=== PATIENT | female | born 1980 | race Caucasian/White ===

== ENCOUNTER 2018-03-03 19:24 | Emergency (ER) | payer OTHER ==
[2018-03-03] MEDS ORDERED: HYDROmorphone 1 MG/ML CARPUJECT IM STA (19:59)
[2018-03-03] MEDS ORDERED: BUFFERED LIDOCAINE 10 ML SYRINGE SUBQ STA (19:59)
[2018-03-03] MEDS ORDERED: PROMETHAZINE 25 MG/1 ML VIAL IM STA (19:59)
--- NOTE | 2018-03-03 20:02 | ED Physician Documentation ---
History of Present Illness - Stated complaint Stated Complaint: FEMALE - Chief complaint Chief Complaint: General - History obtained from History obtained from: Patient - History of Present Illness Timing: Other (She has an abscess in the perineum that has become increasingly painful over the last couple of days without fevers or chills. She had one in the same spot last year that her manipulated and popped at home. She denies possibility of .) Review of Systems Constitutional: denies: Fever, Chills Cardiac: denies: Chest pain / pressure, Palpitations Respiratory: denies: Dyspnea, Cough GI: denies: Abdominal Pain PD PAST MEDICAL HISTORY - Present Medications Home Medications: Ambulatory Orders Medication Instructions Recorded Confirmed Amox/Clav 875/125 [Augmentin] 1 each PO Q12H #14 tablet 03/03/18 Hydrocodone/Acetaminophen 1 - 2 each PO Q6H PRN #14 tablet 03/03/18 [Hydrocodon-Acetaminophen 5-325] - Allergies Allergies/Adverse Reactions: Allergies Allergy/AdvReac Type Severity Reaction Status Date / Time codeine Allergy Hives Verified 03/03/18 19:37 PD ED PE NORMAL - Vitals Vital signs reviewed: Yes - General General: Alert and oriented X 3, Other (She is standing at the side of the bed leaning over because she cannot sit on her perineum is otherwise in no distress.) - Abdomen Abdomen: Soft, Non tender - Female Female : Senior Java [id number] Developer present (Hilary Luna RN), Other (L inner gluteal abscess, 1cm, pointed) - Neuro Neuro: Alert and oriented X 3, Normal speech - Psych Psych: Normal mood, Normal affect Results - Vitals Vitals: Vital Signs - 24 hr 03/03/18 19:34 Temperature 36.0 C L Heart Rate 121 H Respiratory 20 Rate Blood Pressure 144/104 H O2 Saturation 98 Oxygen O2 Source Room air Procedures - Abscess I&D (location) Buttock Preparation: Betadine, Lidocaine 1% Incision: Incised with scalpel, Purulent drainage, Loculations broken, Culture obtained. No: Packed (too small) Other: Pt tolerated well, Dressing applied, Antibiotic prescribed Departure - Departure Disposition: Home, Self Care Clinical Impression: Abscess Condition: Good Record reviewed to determine appropriate education?: Yes Instructions: ED Abscess IandD Prescriptions: Amox/Clav 875/125 [Augmentin] 1 each PO Q12H #14 tablet Hydrocodone/Acetaminophen [Hydrocodon-Acetaminophen 5-325] 1 - 2 each PO Q6H PRN #14 tablet PRN Reason: pain Comments: We are performing a wound culture, the results should be done in 48-72 hours. If antibiotic change is necessary we will call you. Return if worse in the meantime, especially if you develop increased pain, fevers, cannot keep down the medication. Otherwise follow-up with your physician in approximately 2-3 days. Your blood pressure was elevated today on check into the emergency department. This does not mean that you have hypertension, it is a common phenomenon to come to the emergency department and have elevated blood pressure. I recommend that you see your primary care physician within the week to have it rechecked when you are feeling better. Do not drink or drive while taking narcotic pain medication. Note that many narcotic pain relievers also contain Tylenol/acetaminophen. Please ensure that your total dose of acetaminophen from all sources does not exceed 3 g (3000 mg) per day. You may get constipated while on this medication. Take a stool softener such as Colace twice a day while you are on it. Also add an tiit-gwl-iossmjh laxative such as senna or MiraLAX on any day that you do not have a bowel movement. If you received a narcotic pain medication or sedative while in the emergency department, do not drive for the next 24 hours.
[2018-03-03] MEDS ORDERED: AMOX/CLAV 875 MG/125 MG TABLET PO STA (21:11)
[2018-03-03] MEDS ORDERED: HYDROcod/ACET 5/325 Prepack 4 PO STA (21:11)
[2018-03-03 21:48] VITALS: BP 142/108
== END 2018-03-03 21:49 | disposition home or self-care (01) ==
LOC: ED 19:24
DX: L02.215 Cutaneous abscess of perineum (principal); R03.0 Elevated blood-pressure reading, without diagnosis of hypertension
CPT/HCPCS: 56405; 87070; 87205; 96372; 99283; A9270; J1170

== ENCOUNTER 2018-12-10 09:43 | Outpatient (CLI) | payer OTHER | END 2018-12-10 09:44 | disposition home or self-care (01) | LOC: LAB 09:43 | PROVIDERS: ATTEND Obstetrics & Gynecology | DX: O09.529 Supervision of elderly multigravida, unspecified trimester (principal) | CPT/HCPCS: 36415; 81511; 81599; 82950 ==

== ENCOUNTER 2019-01-28 10:03 | Outpatient (CLI) | payer OTHER ==
--- NOTE | 2019-01-28 16:40 | Ultrasound Report ---
Reason: SUPERVISION OF NORMAL Procedure Date: 01/28/2019 Accession Number: [id number] / [id number] Procedure: US - OB Detailed Eval CPT Code: FULL RESULT: EXAM: COMPLETE OBSTETRICAL ULTRASOUND EXAM DATE: 01/28/2019 11:56 AM. CLINICAL HISTORY: anatomic survey. COMPARISON: None. TECHNIQUE: Real-time sonographic evaluation of the fetus performed by the film replacement orderer. Multiple sales representative trainee static images were saved for review. Additional transvaginal imaging to more accurately evaluate cervical length/placental position/etc. DATING: Established EGA 23 weeks 1 day with MAINOR 05/26/2019 based on provider information. EGA 23 weeks 4 days with MAINOR 05/23/2019 based on the current ultrasound. GENERAL EVALUATION Cody . Cardiac activity: 141 bpm. movement: Present Presentation: Variable Placenta: Posterior position. No evidence for previa. Umbilical cord: 3 vessel cord. Central placental cord origin. Amniotic fluid: Subjectively normal. MVP 6.2 cm. BIOMETRY Bi-Parietal Diameter (BPD): 5.6 cm, 23 weeks 0 days Head Circumference (HC): 21.4 cm, 23 weeks 3 days Abdominal Circumference (AC): 19.9 cm, 24 weeks 4 days Femur Length (FL): 4.1 cm, 23 weeks 1 day Estimated Weight: 635 g, 76th percentile for 23 weeks 1 day. ANATOMY The intracranial structures, profile, face/nose/lips, spine, stomach, diaphragm, kidneys, bladder, and extremities were imaged and demonstrate no abnormality. The anterior abdominal wall with cord insertion and cardiac anatomy are not well seen. MATERNAL STRUCTURES Uterus: Unremarkable. Cervix: Long and closed. Transabdominal length 6 cm. Right ovary/adnexa: Unremarkable. Left ovary/adnexa: Unremarkable. Free fluid: None. IMPRESSION: 1. Cody live intrauterine with gestational age 23 weeks 1 day based on provider information. 2. Estimated weight is within expected limits for assigned dating. 3. cardiac anatomy and anterior abdominal wall with cord insertion not well seen today. Suggest follow-up imaging in 2-3 weeks. Otherwise Normal anatomic survey. RADIA
== END 2019-01-28 10:04 | disposition home or self-care (01) ==
LOC: DI 10:03
PROVIDERS: ATTEND Obstetrics & Gynecology
DX: Z34.92 Encounter for supervision of normal pregnancy, unspecified, second trimester (principal)
CPT/HCPCS: 76811

== ENCOUNTER 2019-02-11 11:17 | Outpatient (CLI) | payer OTHER ==
--- NOTE | 2019-02-12 13:25 | Ultrasound Report ---
Reason: SUPER OF NORMAL , INCOMPLETE FAS Procedure Date: 02/11/2019 Accession Number: [id number] / [id number] Procedure: US - OB F/U or Repeat CPT Code: Final Report FULL RESULT: EXAM: FOLLOW-UP OBSTETRICAL ULTRASOUND EXAM DATE: 02/11/2019 01:10 PM. CLINICAL HISTORY: Supervision of normal . Completion of anatomy survey. COMPARISON: OB DETAILED EVAL 01/28/2019 10:09 AM. TECHNIQUE: Real-time sonographic evaluation of the fetus performed by the triage nurse. Multiple cash posting representative static images were saved for review. DATING: Established EGA 25 weeks 1 day with MAINOR 05/26/2019 based on working due date. EGA 25 weeks 4 days with MAINOR 05/23/2019 based on first ultrasound. GENERAL EVALUATION Cody . Cardiac activity: 148 bpm. movement: Visualized. Presentation: Cephalic. Placenta: Posterior position. Amniotic fluid: Normal. TYLER 23.9 cm. MVP 7.2 cm. ANATOMY The four-chamber cardiac view, right and left ventricle outflow tract views are adequately seen today and appear normal. The abdominal wall and cord insertion are well seen today, appearance is normal. Given top normal amniotic fluid: On the previous examination a normal appearing stomach bubble is noted. No definite bowel obstruction is seen. No thoracic mass is incidentally noted. IMPRESSION: 1. Cody live intrauterine with gestational age weeks/days based on source of assigned dating. 2. Amniotic fluid is top normal. 3. Normal completion of the anatomy survey. RADIA
== END 2019-02-11 11:18 | disposition home or self-care (01) ==
LOC: DI 11:17
PROVIDERS: ATTEND Obstetrics & Gynecology
DX: Z34.90 Encounter for supervision of normal pregnancy, unspecified, unspecified trimester (principal)
CPT/HCPCS: 76816

== ENCOUNTER 2019-03-14 14:07 | Outpatient (CLI) | payer OTHER ==
--- NOTE | 2019-03-17 14:27 | Ultrasound Report ---
Reason: GESTATIONAL DIABETES, POLYHYDRAMNIOS Procedure Date: 03/14/2019 Accession Number: [id number] / [id number] Procedure: US - OB F/U or Repeat CPT Code: Final Report FULL RESULT: EXAM: FOLLOW-UP OBSTETRICAL ULTRASOUND EXAM DATE: 03/14/2019 04:24 PM. CLINICAL HISTORY: Gestational diabetes, polyhydramnios. COMPARISON: OB F/U OR REPEAT 02/11/2019 12:25 PM. OB DETAILED EVAL 01/28/2019 10:09 AM. TECHNIQUE: Real-time sonographic evaluation of the fetus performed by the behavioral health care manager. Multiple personnel representative static images were saved for review. DATING: Established EGA 29 weeks 4 days with MAINOR 05/26/2019 based on working due date and LMP. EGA 31 weeks 0 days with MAINOR 05/16/2019 based on the current ultrasound. GENERAL EVALUATION Cody . Cardiac activity: 129 bpm. movement: Visualized. Presentation: Cephalic. Placenta: Posterior position. Amniotic fluid: Normal. TYLER 14.2 cm. MVP 4.1 cm. BIOMETRY Bi-Parietal Diameter (BPD): 7.7 cm, 30 weeks 5 days. Head Circumference (HC): 28.6 cm, 31 weeks 3 days. Abdominal Circumference (AC): 26.6 cm, 30 weeks 5 days. Femur Length (FL): 5.9 cm, 31 weeks 0 days. Estimated Weight: 1659 g, 83rd percentile for 29 weeks 4 days. IMPRESSION: 1. Cody live intrauterine with gestational age 29 weeks 4 days based on LMP. 2. Estimated weight is within expected limits for assigned dating. 3. Normal interval growth compared to date of prior biometry. 4. Amniotic fluid within normal limits. RADIA
== END 2019-03-14 14:08 | disposition home or self-care (01) ==
LOC: DI 14:07
PROVIDERS: ATTEND Obstetrics & Gynecology
DX: O24.419 Gestational diabetes mellitus in pregnancy, unspecified control (principal); O40.3XX0 Polyhydramnios, third trimester, not applicable or unspecified; O09.893 Supervision of other high risk pregnancies, third trimester; Z3A.29 29 weeks gestation of pregnancy
CPT/HCPCS: 76816

== ENCOUNTER 2019-04-15 12:34 | Outpatient (CLI) | payer OTHER ==
--- NOTE | 2019-04-16 17:45 | Ultrasound Report ---
Reason: GESTATIONAL DIABETES, SUPERVOF HIGH RISK PREG Procedure Date: 04/15/2019 Accession Number: [id number] / [id number] Procedure: US - OB F/U or Repeat CPT Code: Final Report FULL RESULT: EXAM: FOLLOW-UP OBSTETRICAL ULTRASOUND. EXAM DATE: 04/15/2019 02:22 PM. CLINICAL HISTORY: Gestational diabetes. High-risk . Assess growth and amniotic fluid. COMPARISON: 03/14/2019. TECHNIQUE: Real-time sonographic evaluation of the fetus performed by the photoengraving etcher. Additional transvaginal imaging to more accurately evaluate cervical length/placental position/etc. Multiple traffic workforce representative static images were saved for review. DATING: Established EGA 34 weeks/1 day with MAINOR 05/26/2019 based on provider stated. EGA 36 weeks/5 days with MAINOR 05/08/2019 based on current ultrasound. EGA 36 weeks/5 days with MAINOR 05/08/2019 based on the initial ultrasound 01/28/2019. GENERAL EVALUATION Cody . Cardiac activity: 139 bpm. movement: Visualized. Presentation: Cephalic. Placenta: Posterior position. Amniotic fluid: Normal. TYLER 19.5 cm. MVP 6.9 cm. BIOMETRY Bi-Parietal Diameter (BPD): 9.1 cm, 36 weeks/6 days Head Circumference (HC): 33.49 cm, 38 weeks/2 days Abdominal Circumference (AC): 33.0 cm, 37 weeks/0 days Femur Length (FL): 6.70 cm, 34 weeks/3 days Estimated Weight: 2945 g, 96 percentile for assigned dating. IMPRESSION: 1. Cody live intrauterine with gestational age 36 weeks 5 days based on biometry performed today. This is within 2 weeks of the gestational age based on the initial ultrasound (01/28/2019). 2. Estimated weight (2945 g) is within the 96th percentile for assigned dating. 3. Normal amniotic fluid (19.5 cm - TYLER). LIBRAA
== END 2019-04-15 12:35 | disposition home or self-care (01) ==
LOC: DI 12:34
PROVIDERS: ATTEND Obstetrics & Gynecology
DX: O09.893 Supervision of other high risk pregnancies, third trimester (principal); O24.419 Gestational diabetes mellitus in pregnancy, unspecified control; Z3A.36 36 weeks gestation of pregnancy
CPT/HCPCS: 76816

== ENCOUNTER 2019-04-29 07:00 | Outpatient (CLI) | payer OTHER ==
[2019-04-29 20:15] LABS: TRICHOMONAS VAGINALIS DNA NEGATIVE (NEGATIVE)
== END 2019-04-29 23:59 | disposition home or self-care (01) ==
LOC: LAB.R 07:00
PROVIDERS: ATTEND Obstetrics & Gynecology
DX: Z36.85 Encounter for antenatal screening for Streptococcus B (principal)
CPT/HCPCS: 87491; 87591; 87661; 87797

== ENCOUNTER 2019-05-16 09:03 | Outpatient (CLI) | payer OTHER ==
--- NOTE | 2019-05-17 10:27 | Ultrasound Report ---
Reason: GESTATION DIABETES, POLYHYDRAMNIOS, SUPERV 2ND TRI Procedure Date: 05/16/2019 Accession Number: [id number] / [id number] Procedure: US - OB F/U or Repeat CPT Code: Final Report FULL RESULT: EXAM: FOLLOW-UP OBSTETRICAL ULTRASOUND EXAM DATE: 05/16/2019 09:24 AM. CLINICAL HISTORY: Gestational diabetes. Polyhydramnios. COMPARISON: 04/15/2019 radiograph. TECHNIQUE: Real-time sonographic evaluation of the fetus performed by the pediatric dental hygienist. Additional transvaginal imaging to more accurately evaluate cervical length/placental position/etc. Multiple marketing development representative static images were saved for review. DATING: Established EGA 38 weeks 4 days with MAINOR 05/26/19 based on established gestational age. EGA 39 weeks 0 days with MAINOR 05/23/19 based on first ultrasound. GENERAL EVALUATION Cody . Cardiac activity: 142 bpm. movement: Visualized. Presentation: Cephalic. Placenta: Posterior/fundal position. Amniotic fluid: Normal. TYLER 16.2 cm. MVP 6.1 cm. BIOMETRY Bi-Parietal Diameter (BPD): 9.89 cm, 40 weeks 4 days +/- 3 weeks Head Circumference (HC): 35.2 cm, 40 weeks 0 days +/- 3 weeks Abdominal Circumference (AC): 36.7 cm, 40 weeks 4 days +/-3 weeks Femur Length (FL): 7.6 cm, 38 weeks 5 days +/-3 weeks Estimated Weight: 4047 g, 94.9 percentile for 38 weeks 4 days. IMPRESSION: 1. Cody live intrauterine with gestational age 38 weeks 4 days based on established gestational age. 2. weight remains near the 95th percentile. 3. Normal interval growth compared to date of prior biometry. RADIA
== END 2019-05-16 09:04 | disposition home or self-care (01) ==
LOC: DI 09:03
PROVIDERS: ATTEND Obstetrics & Gynecology
DX: O24.419 Gestational diabetes mellitus in pregnancy, unspecified control (principal); O40.3XX0 Polyhydramnios, third trimester, not applicable or unspecified; O09.892 Supervision of other high risk pregnancies, second trimester; Z3A.38 38 weeks gestation of pregnancy
CPT/HCPCS: 76816

== ENCOUNTER 2019-05-19 09:21 | Outpatient (CLI) | payer OTHER | END 2019-05-19 09:22 | disposition home or self-care (01) | LOC: LAB 09:21 | PROVIDERS: ATTEND Obstetrics & Gynecology | DX: Z01.812 Encounter for preprocedural laboratory examination (principal); O34.211 Maternal care for low transverse scar from previous cesarean delivery; Z3A.00 Weeks of gestation of pregnancy not specified | CPT/HCPCS: 36415; 86850; 86900; 86901 ==

== ENCOUNTER 2019-05-21 05:03 | Inpatient (IN) | payer OTHER ==
[~2019-05-21 05:03] MED LIST: LACTATED RINGERS 1,000 ML IV SCH; ceFAZolin 3 GM in SODIUM CHLORIDE 0.9% 100ML 100 ML IV ONE
[2019-05-21 06:35] LABS: BASOPHILS % (AUTO) 0.3 %; EOSINOPHILS % (AUTO) 0.3 %; LYMPHOCYTES # (AUTO) 2.8 10^3/uL (1.5-3.5); LYMPHOCYTES % (AUTO) 27.4 %; MEAN CORPUSCULAR HEMOGLOBIN 29.8 pg (27.0-31.0); MEAN CORPUSCULAR HGB CONC 33.5 g/dL (32.0-36.0); MEAN CORPUSCULAR VOLUME 88.8 fL (81.0-99.0); MEAN PLATELET VOLUME 10.6 fL (7.9-10.8); MONOCYTES # (AUTO) 0.7 10^3/uL (0.0-1.0); MONOCYTES % (AUTO) 6.9 %; NEUTROPHILS # (AUTO) 6.7 10^3/uL (1.5-6.6); NEUTROPHILS % (AUTO) 64.7 %; PLT - PLATELET COUNT 190 10^3/uL (130-450); RED BLOOD COUNT 4.03 10^6/uL (4.20-5.40); RED CELL DISTRIBUTION WIDTH 14.7 % (12.0-15.0); WHITE BLOOD COUNT 10.3 x10^3/uL (4.8-10.8)
[2019-05-21] MEDS ORDERED: miSOPROStoL 200 MCG TABLET ONE (06:44)
[2019-05-21] MEDS ORDERED: CARBOPROST TROMETHAMINE 250 MCG/ML AMP IM ONE (06:44)
[2019-05-21] MEDS ORDERED: METHYLERGONOVINE 0.2 MG/ML AMP ONE (06:44)
[2019-05-21] MEDS ORDERED: ROPIVACAINE 0.5% PF 20 ML AMPULE ONE (07:13)
--- NOTE | 2019-05-21 07:15 | ANESTHESIA ---
Pre-Anesthesia VS, & Labs - Diagnosis IUP - Procedure Repeat C Sec Vital Signs: Temp Pulse Resp BP Pulse Ox 36.8 C 97 18 110/64 97 05/21/19 05:30 05/21/19 05:30 05/21/19 05:30 05/21/19 05:30 05/21/19 05:30 Height 5 ft 4 in Weight (kg) 128.73 kg Body Mass Index 49.1 - NPO >8 hours - Is Patient ?: Yes - Lab Results Current Lab Results: Laboratory Tests 05/21/19 06:22: POC Whole Bld Glucose 86 05/21/19 06:20: WBC 10.3, RBC 4.03 L, Hgb 12.0, Hct 35.8 L, MCV 88.8, MCH 29.8, MCHC 33.5, RDW 14.7, Plt Count 190, MPV 10.6, Neut # (Auto) 6.7 H, Lymph # (Auto) 2.8, [place] # (Auto) 0.7, Eos # (Auto) 0.0, Baso # (Auto) 0.0, Absolute Nucleated RBC 0.00, Nucleated RBC % 0.0 Fish Bones: 05/21/19 06:20 Home Medications and Allergies Active Medications Lactated Ringer's (Lr) 1,000 mls @ 0 mls/hr IV .Q0M FAIZA Last Admin: 05/21/19 06:31 Dose: 30 mls/hr Allergies/Adverse Reactions: Allergies Allergy/AdvReac Type Severity Reaction Status Date / Time codeine Allergy Hives Verified 03/03/18 19:37 Anes History & Medical History - Anesthetic History Anesthesia Complications: reports: No previous complications Family history of Anesthesia Complications: Denies Family history of Malignant Hyperthermia: Denies - Medical History Cardiovascular: reports: None Pulmonary: reports: None Gastrointestinal: reports: GERD (reports really bad heart burn. We will give bicitra) Urinary: reports: None Neuro: reports: None Musculoskeletal: reports: None Endocrine/Autoimmune: reports: None Blood Disorders: reports: None Skin: reports: None Smoking Status: Former smoker Psychosocial: reports: No issues indicated - Surgical History Eyes Ears Nose Throat (EENT): Tonsil/Adenoidectomy Gynecologic: section Exam General: Alert, Oriented x3, Cooperative, No acute distress Dental: WNL Mouth Openin Fingerbreadth Neck Mobility: Normal Mallampati classification: II Thyromental Distance: less than 4 cm Respiratory: Lungs clear, Normal breath sounds, No respiratory distress, No accessory muscle use Cardiovascular: Regular rate, Normal S1, Normal S2, No murmurs Abdomen: Normal bowel sounds, Soft, No tenderness, No hepatospenomegaly, No masses Extremities: No clubbing, No cyanosis, No edema, Normal pulses, No tenderness/swelling Neurological: Normal gait, Normal speech, Strength at 5/5 X4 ext, Normal tone, Sensation intact, Cranial nerves 3-12 NL, Reflexes 2+ Mental/Cognitive Status: Alert/Oriented X3, Normal for patient Cognitive Status: Within normal limits Plan Anesthesia Type: General, Spinal Consent for Procedure(s) Verified and Reviewed: Yes Code Status: Attempt Resuscitation ASA classification: 2-Mild systemic disease Is this case an emergency?: No
[2019-05-21] MEDS ORDERED: CITRIC ACID/SODIUM CITRATE 15 ML UDC PO ONE ×2 (07:17→07:19)
[2019-05-21] MEDS ORDERED: OXYTOCIN 10 UNIT/ML VIAL IV ONE (07:44)
[2019-05-21] MEDS ORDERED: MORPHINE PF 5 MG/10 ML AMP EP ONE (07:44)
[2019-05-21] MEDS ORDERED: ONDANSETRON 4 MG/2 ML VIAL IVP ONE ×2 (07:44→09:32)
[2019-05-21] MEDS ORDERED: LACTATED RINGERS 1,000 ML IV ONE (07:44)
[2019-05-21] MEDS ORDERED: fentaNYL 100 MCG/2 ML VIAL IVP ONE (07:44)
[2019-05-21] MEDS ORDERED: ePHEDrine 50 MG/ML VIAL IVP ONE (07:44)
[2019-05-21] MEDS ORDERED: PHENYLEPHRINE 50 MG/5 ML VIAL IV ONE (07:44)
[2019-05-21] MEDS ORDERED: KETOROLAC 30 MG/ML VIAL IVP ONE (09:32)
--- NOTE | 2019-05-21 09:32 | OPERATIVE REPORT ---
Operative Report - General Admit Date: 05/21/19 Procedure Date: 05/21/19 Pre-Op Diagnosis: Prior , IUP at 39w Procedure Performed: Repeat - Procedure Note Primary Surgeon: amaya Secondary Surgeon: Jorgito = CM Richards Anesthesia Technique: Epidural Pathology: cord blood for typing IV Fluids (mL): 800 Estimated Blood Loss (mL): 400 Urine Output (mL): 200 Findings: Liveborn male, / Clear amniotic fluid Ov/tubes normal to palpation. No adhesive disease. Complications: none
[2019-05-21] MEDS ORDERED: SODIUM CHLORIDE FLUSH 0.9% 10 ML SYRINGE IVP PRN (09:33)
[2019-05-21] MEDS ORDERED: WITCH HAZEL/GLYCERIN 1 PAD TOP PRN (09:33)
[2019-05-21] MEDS ORDERED: HYDROCORTISONE 1% CREAM 28 GM TUBE PR PRN (09:33)
[2019-05-21] MEDS ORDERED: ONDANSETRON ODT 4 MG TABLET TL PRN (09:33)
[2019-05-21] MEDS ORDERED: DEXTROSE 5% 500 ML IV ONE (09:44)
[2019-05-21] MEDS ORDERED: OXYTOCIN/DEXTROSE 5 % 30 UNIT/500 ML BAG IV SCH (10:00)
[2019-05-21] MEDS: ACETAMINOPHEN 500 MG TABLET PO SCH ×2 (13:03→21:02)
--- NOTE | 2019-05-21 13:44 | OPERATIVE REPORT ---
DATE OF SERVICE: 05/21/2019 Physician: Melinda Thornton MD PREOPERATIVE DIAGNOSES 1. Intrauterine at 39 weeks. 2. Prior section. 3. Gestational diabetes. POSTOPERATIVE DIAGNOSIS: Status post repeat section. PROCEDURE PERFORMED: Repeat low transverse section. SURGEON: Melinda Thornton MD VETERANS SERVICES SPECIALIST: Taylor Richards CNM. ANESTHESIA: Spinal. ESTIMATED BLOOD LOSS: 400 mL INTRAVENOUS FLUIDS: 800 mL of crystalloid. URINE OUTPUT: 200 mL, clear. COUNTS: Correct x2. COMPLICATIONS: None apparent. DISPOSITION: Stable to recovery room. PROPHYLAXIS: Ancef 3 grams weight based. SCDs to bilateral lower extremities. SPECIMENS: Cord blood to pathology. FINDINGS: Liveborn male, weight is pending. Apgars 9 at one minute and 9 at five minutes. Amniotic fluid was clear. The ovaries and fallopian tubes were normal to palpation. No adhesive disease was encountered. COUNSELING: Patient declined her option of trial of labor. DESCRIPTION OF PROCEDURE: Patient was brought to the operating room, where she underwent spinal anes thesia. She was placed in a left tilt. A Ayala catheter was placed. She was prepped and draped in the usual sterile fashion. A scalpel was used to make a Pfannenstiel skin incision in the area of th e patient's prior scar. This was carried down to the fascia, which was nicked in the midline bilater ally. The fascial incision was extended laterally, sharply. The Meghan clamps were then placed on t he inferior margin of the fascial incision and the fascia was sharply and bluntly dissected off of th e underlying rectus. The same was performed superiorly. The peritoneum was sharply entered. Room w as deemed to be adequate. A bladder retractor was placed. A scalpel was used to make a transverse i ncision in the lower uterine segment. The uterine cavity was breeched with a finger. The uterine in cision was extended laterally by applying pressure caudally and cranially. The surgeon's hand was pl aced into the uterine cavity and the head was elevated and then delivered with the assistance o f fundal pressure. The shoulders and body easily followed. The cord was left pulsating for 30 secon ds. During this time, the baby was warmed, dried and stimulated. The umbilical cord was clamped x2 and cut and the baby was handed to the team in waiting. Cord blood was obtained for typing. The placenta was then removed with external uterine massage and appeared intact. The uterus was curetted with a dry sponge without any return of membranes. The [place] rine incision was closed with a running layer of 0 Vicryl. A second imbricating layer was performed. There was a bit of oozing in the midline, which was reapproximated with a single interrupted suture of 0 Vicryl with good hemostasis. Excellent hemostasis was noted on the uterine incision, rectus an d fascia. The fascia was closed with a running layer of 0 Vicryl from end to end. The subcutaneous tissues were irrigated and then reapproximated with interrupted sutures of 2-0 Vicryl. The skin was closed with a subcuticular suture of 4-0 Monocryl. Dermabond was then applied. Fundal massage yield ed a normal amount of blood and clot. TD: 05/21/2019 12:41
[2019-05-21] MEDS: oxyCODONE 5 MG TABLET PO PRN ×2 (15:13→20:03)
[2019-05-21] MEDS: IBUPROFEN 600 MG TABLET PO SCH ×2 (16:35→22:38)
[2019-05-21] MEDS: SODIUM CHLORIDE FLUSH 0.9% 10 ML SYRINGE IVP SCH (17:17)
[2019-05-21] MEDS: SIMETHICONE CHEW 80 MG TABLET PO PRN (17:57)
[2019-05-21] MEDS: DOCUSATE SODIUM 100 MG CAPSULE PO SCH (21:02)
[2019-05-21] MEDS: HEPARIN 5,000 UNIT/ML VIAL SUBQ SCH (21:03)
[2019-05-22] MEDS: oxyCODONE 5 MG TABLET PO PRN ×5 (03:03→21:20)
[2019-05-22] MEDS: IBUPROFEN 600 MG TABLET PO SCH ×4 (04:26→22:39)
[2019-05-22] MEDS: ACETAMINOPHEN 500 MG TABLET PO SCH ×3 (05:07→21:19)
[2019-05-22 07:23] LABS: BASOPHILS % (AUTO) 0.2 %; EOSINOPHILS % (AUTO) 0.1 %; HGB - HEMOGLOBIN 10.3 g/dL (12.0-16.0); LYMPHOCYTES # (AUTO) 2.6 10^3/uL (1.5-3.5); LYMPHOCYTES % (AUTO) 22.3 %; MEAN CORPUSCULAR HEMOGLOBIN 29.6 pg (27.0-31.0); MEAN CORPUSCULAR HGB CONC 32.4 g/dL (32.0-36.0); MEAN CORPUSCULAR VOLUME 91.4 fL (81.0-99.0); MEAN PLATELET VOLUME 10.3 fL (7.9-10.8); MONOCYTES # (AUTO) 0.8 10^3/uL (0.0-1.0); MONOCYTES % (AUTO) 7.1 %; NEUTROPHILS # (AUTO) 8.2 10^3/uL (1.5-6.6); NEUTROPHILS % (AUTO) 69.7 %; PLT - PLATELET COUNT 171 10^3/uL (130-450); RED BLOOD COUNT 3.48 10^6/uL (4.20-5.40); RED CELL DISTRIBUTION WIDTH 14.7 % (12.0-15.0); WHITE BLOOD COUNT 11.8 x10^3/uL (4.8-10.8)
[2019-05-22] MEDS: SODIUM CHLORIDE FLUSH 0.9% 10 ML SYRINGE IVP SCH ×2 (07:40→14:21)
[2019-05-22] MEDS ORDERED: IBUPROFEN 600 MG TABLET PO SCH (09:35)
[2019-05-22] MEDS: HEPARIN 5,000 UNIT/ML VIAL SUBQ SCH ×2 (09:57→21:20)
[2019-05-22] MEDS: SIMETHICONE CHEW 80 MG TABLET PO PRN ×3 (09:57→18:03)
[2019-05-22] MEDS: DOCUSATE SODIUM 100 MG CAPSULE PO SCH ×2 (09:57→21:19)
--- NOTE | 2019-05-22 17:38 | PROVIDER PROGRESS NOTE ---
Subjective - Subjective Subjective: Pt seen at 0845 Feeling well, pain is normal, no problems. Eat, ambulate, urinate, breastfeed well. Having flatus. No heavy bleeding. No mood issues AVSS Alert, smiling, NAD Abd soft, nt/nd. Fundus firm at umbilicus. Incision c/d/i without erythema or induration LE without edema P2 POD #1 s/p scheduled repeat , doing well. Plan for routine PP care. Obese, heparin 5,000 sq bid. Objective - Vital Signs/Intake & Output Vital Signs: Vital Signs x48h Temp Pulse Resp BP Pulse Ox 05/22/19 16:34 97.9 F 86 18 115/55 L 98 Intake & Output: Intake & Output 05/19/19 05/20/19 05/21/19 05/22/19 23:59 23:59 23:59 23:59 Intake Total 1600 500 Output Total 1110 2875 Balance 490 -2375 - Lab Results Fish Bones: 05/22/19 07:00 Other Labs: Lab Results x24hrs 05/22/19 Range/Units 07:00 WBC 11.8 H (4.8-10.8) x10^3/uL RBC 3.48 L (4.20-5.40) 10^6/uL Hgb 10.3 L (12.0-16.0) g/dL Hct 31.8 L (37.0-47.0) % MCV 91.4 (81.0-99.0) fL MCH 29.6 (27.0-31.0) pg MCHC 32.4 (32.0-36.0) g/dL RDW 14.7 (12.0-15.0) % Plt Count 171 (130-450) 10^3/uL MPV 10.3 (7.9-10.8) fL Neut # (Auto) 8.2 H (1.5-6.6) 10^3/uL Lymph # (Auto) 2.6 (1.5-3.5) 10^3/uL [place] # (Auto) 0.8 (0.0-1.0) 10^3/uL Eos # (Auto) 0.0 (0.0-0.7) 10^3/uL Baso # (Auto) 0.0 (0.0-0.1) 10^3/uL Absolute Nucleated RBC 0.00 x10^3/uL Nucleated RBC % 0.0 /100WBC
[2019-05-23] MEDS: IBUPROFEN 600 MG TABLET PO SCH ×2 (04:30→10:29)
[2019-05-23] MEDS: ACETAMINOPHEN 500 MG TABLET PO SCH (04:30)
[2019-05-23] MEDS: oxyCODONE 5 MG TABLET PO PRN (04:30)
--- NOTE | 2019-05-23 08:04 | Discharge Plan ---
Discharge Plan Problem Reviewed?: Yes Disposition: Home, Self Care Condition: Good Diet: Regular Activity Restrictions: No driving on narcotics, no sex for 6w Shower Restrictions: No Driving Restrictions: Yes No Smoking: If you smoke, Please STOP! Call for help. Follow-up with: Ruben Pate MD [Provider Admit Priv/Credential] - 1 Week
[2019-05-23 08:29] VITALS: BP 115/64
[2019-05-23] MEDS: DOCUSATE SODIUM 100 MG CAPSULE PO SCH (10:29)
--- NOTE | 2019-05-24 21:02 | DISCHARGE SUMMARY ---
Physician: Melinda Thornton MD DATE OF ADMISSION: 05/21/2019 DATE OF DISCHARGE: 05/23/2019 ADMITTING DIAGNOSES: Prior section, desires repeat section. DISCHARGE DIAGNOSIS: Status post repeat section, uncomplicated. OPERATIONS: 05/21/2019 repeat section, uncomplicated, of a liveborn male. HOSPITAL COURSE: The patient was admitted for a scheduled repeat section, which was uncompl icated. Her postoperative course was also uncomplicated. By day 2, she was requesting mariah jay home. She was eating, ambulating, urinating and without difficulties. Her rae n was well controlled and she did not have heavy bleeding. She is afebrile with normal vital signs. She is alert and smiling, in no apparent distress. Abdomen: Soft, nontender, nondistended. Fundus firm and at the umbilicus. The incision was clean, dry and intact without erythema or induration. There was no lower extremity edema bilaterally. DISCHARGE DISPOSITION: Home. CONDITION: Good. FOLLOWUP: Follow up in 1 week at [facility] for an incision check. DISCHARGE MEDICATIONS: 1. vitamins. 2. Ibuprofen p.r.n. pain. 3. Oxycodone p.r.n. severe pain, #20, no refills. 4. Colace p.r.n. to soften stool. TD: 05/24/2019 16:48
== END 2019-05-23 11:07 | disposition home or self-care (01) | DRG 788 ==
LOC: FBP 05:03
PROVIDERS: ADMIT Obstetrics & Gynecology; ATTEND Obstetrics & Gynecology
PROC: 10D00Z1 Extraction of Products of Conception, Low, Open Approach (ICD-10-PCS; principal; 2019-05-21 07:30)
DX: O34.211 Maternal care for low transverse scar from previous cesarean delivery (principal); O24.429 Gestational diabetes mellitus in childbirth, unspecified control; N85.8 Other specified noninflammatory disorders of uterus; O99.214 Obesity complicating childbirth; Z87.891 Personal history of nicotine dependence; Z3A.39 39 weeks gestation of pregnancy; Z37.0 Single live birth; Z79.899 Other long term (current) drug therapy
CPT/HCPCS: 36415; 85025; A9270; J3490; J7120

== ENCOUNTER 2019-05-26 23:18 | Emergency (ER) | payer OTHER ==
[2019-05-27] MEDS ORDERED: LIDOCAINE 2%-EPI 1:100000 20 ML MDV SUBQ STA (02:19)
[2019-05-27] MEDS ORDERED: IBUPROFEN 600 MG TABLET PO STA (02:21)
[2019-05-27 04:52] VITALS: BP 131/73
--- NOTE | 2019-05-29 05:55 | ED Physician Documentation ---
PD HPI SKIN - Stated complaint Stated Complaint: BLEEDING INCISION/ POST - Chief complaint Chief Complaint: Wound - History obtained from History obtained from: Patient - History of Present Illness Timing - onset: Today Timing - details: Abrupt onset Pain level now: 0 Location: Abdomen Quality / character: Other (bleeding). No: Itchy, Painful, Burning, Discolored, Raised, Vesicular, Crusted, Swelling Associated symptoms: No: Fever, Abd pain Similar symptoms before: Has not had sx before Recently seen: Surgery - Additional information Additional information: bleeding from incision site tonight when bathing her child. bleeding is from left lateral aspect of site. patient had 05/21. 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 : None HEENT: None Psych: None Musculoskeletal: None Derm: None - Past Surgical History Past Surgical History: Yes /OIL FIELD PUMPER: section HEENT: Tonsil/Adenoidectomy - Present Medications Home Medications: Ambulatory Orders Medication Instructions Recorded Confirmed Amox/Clav 875/125 [Augmentin] 1 each PO Q12H #14 tablet 03/03/18 Hydrocodone/Acetaminophen 1 - 2 each PO Q6H PRN #14 tablet 03/03/18 [Hydrocodon-Acetaminophen 5-325] - Allergies Allergies/Adverse Reactions: Allergies Allergy/AdvReac Type Severity Reaction Status Date / Time codeine Allergy Hives Verified 05/26/19 23:32 - Social History Does the pt smoke?: No Smoking Status: Never smoker Does the pt drink ETOH?: Yes Does the pt have substance abuse?: No - Immunizations Immunizations are current?: Yes - POLST Patient has POLST: No PD ED PE NORMAL - Vitals Vital signs reviewed: Yes - General General: Alert and oriented X 3, No acute distress, Well developed/nourished - Abdomen Abdomen: Soft, Non tender, Other (left-most 3-4 cm of incision site has brisk, non-pulsatile dark red beeding from wound) Results - Vitals Vitals: Oxygen O2 Source Room air PD MEDICAL DECISION MAKING - ED course Complexity details: considered differential, d/w patient, d/w family ED course: D/W Dr. Thornton, recommends silver nitrate to cauterize wound and then steri- strip entire wound. I injected 2%lidocaine with epinephrine into edges of wound and then applied three layers of silver nitrate to the bleeding edges of the wound, resulting in good hemostasis. strei strip then applied by tech to entire wound Departure - Departure Disposition: 01 Home, Self Care Clinical Impression: Postoperative bleeding from incision Condition: Good Instructions: ED Wound Check Post Op Bleeding Follow-Up: Melinda Thornton MD [Provider Admit Priv/Credential] - Discharge Date/Time: 05/27/19 04:52
== END 2019-05-27 04:52 | disposition home or self-care (01) ==
LOC: ED 23:18
DX: L76.22 Postprocedural hemorrhage of skin and subcutaneous tissue following other procedure (principal)
CPT/HCPCS: 99283; A9270

== ENCOUNTER 2019-06-01 15:48 | Observation (INO) | payer OTHER ==
--- NOTE | 2019-06-01 16:08 | ED Physician Documentation ---
PD HPI SKIN - Stated complaint Stated Complaint: OPEN WOUND - Chief complaint Chief Complaint: Wound - History obtained from History obtained from: Patient, Family () - History of Present Illness Timing - onset: How many days ago (She is 11 days having delivered by on 21 May. She was doing well initially and a week ago started having some dehiscence on the corner of her wound. She was seen in the emergency department and had some wound care but did not look infected at the time. She was seen in follow-up in the office [address] Noble and had a wound VAC placed. Still no apparent infection at the time. Since that time the patient states starting yesterday she started with an odor and some drainage into the tubing of the wound VAC. It looked somewhat purulent as well as dark blood. She states the lower abdomen is much more odorous today. She talked with Dr. Alejandra who is on-call and referred to the ER. She denies fever or chills.) Timing - duration: Days Timing - details: Gradual onset (Initially with some dehiscence and now some drainage and odor from the wound. No systemic symptoms) Location: Abdomen (lower abd a C-sec site) Quality / character: Painful, Draining. No: Discolored Recently seen: Clinic (Seen in the office 4 days ago with a wound VAC placed on a dehiscence area without any apparent infection at the time), Surgery (She had a on 05/21/2019 without complications.) Review of Systems Constitutional: reports: Myalgias. denies: Fever, Chills Nose: denies: Rhinorrhea / runny nose, Congestion Throat: denies: Sore throat Cardiac: denies: Chest pain / pressure, Palpitations Respiratory: denies: Dyspnea, Cough GI: reports: Abdominal Pain (at incision area, with increase the past couple of days), Nausea. denies: Vomiting, Diarrhea : denies: Discharge, Vaginal bleeding Neurologic: reports: Generalized weakness. 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 HEENT: Tonsil/Adenoidectomy - Present Medications Home Medications: Ambulatory Orders Medication Instructions Recorded Confirmed Amox/Clav 875/125 [Augmentin] 1 each PO Q12H #14 tablet 03/03/18 Hydrocodone/Acetaminophen 1 - 2 each PO Q6H PRN #14 tablet 03/03/18 [Hydrocodon-Acetaminophen 5-325] - Allergies Allergies/Adverse Reactions: Allergies Allergy/AdvReac Type Severity Reaction Status Date / Time codeine Allergy Hives Verified 06/01/19 15:54 - Social History Does the pt smoke?: No Smoking Status: Never smoker Does the pt drink ETOH?: Yes Does the pt have substance abuse?: No - Immunizations Immunizations are current?: Yes - POLST Patient has POLST: No PD ED PE NORMAL - Vitals Vital signs reviewed: Yes - General General: Alert and oriented X 3, Well developed/nourished - HEENT HEENT: Pharynx benign - Neck Neck: Supple, no meningeal sign, No adenopathy - Cardiac Cardiac: RRR (regular but tachycardic), No murmur - Respiratory Respiratory: Clear bilaterally - Abdomen Abdomen: Soft, Non distended, No organomegaly, Other (There is a wound VAC in place horizontally across the site. There is a significant odor emanating from the area. There is no obvious redness nor fluid collections under the skin in the area. I left the wound VAC in place. Culture was obtained from the wound VAC tubing of some of the material in it.) - Female Female : Deferred - Rectal Rectal: Deferred - Back Back: No CVA TTP - Derm Derm: Normal color, Warm and dry - Neuro Neuro: Alert and oriented X 3, No motor deficit, Normal speech Results - Vitals Vitals: Vital Signs - 24 hr 06/01/19 06/01/19 06/01/19 15:54 15:58 18:28 Temperature 36.9 C 36.9 C Heart Rate 110 H 110 H 76 Respiratory 15 15 18 Rate Blood Pressure 147/90 H 147/90 H 124/72 O2 Saturation 97 97 99 06/01/19 20:00 Temperature Heart Rate 77 Respiratory 16 Rate Blood Pressure 122/74 O2 Saturation 100 Oxygen O2 Source Room air - Labs Labs: Microbiology 06/01/19 17:00 Wound Culture - Preliminary Abdomen Laboratory Tests 06/01/19 06/01/19 17:40 17:40 WBC 9.8 RBC 4.30 Hgb 12.7 Hct 38.7 MCV 90.0 MCH 29.5 MCHC 32.8 RDW 13.9 Plt Count 267 MPV 9.9 Neut # (Auto) 5.9 Lymph # (Auto) 3.1 [place] # (Auto) 0.6 Eos # (Auto) 0.1 Baso # (Auto) 0.1 Absolute Nucleated RBC 0.00 Nucleated RBC % 0.0 Sodium 140 Potassium 3.9 Chloride 106 Carbon Dioxide 24 Anion Gap 10.0 BUN 16 Creatinine 0.5 Estimated GFR (MDRD) 139 Glucose 86 Calcium 9.2 Total Bilirubin 0.6 AST 21 ALT 25 Alkaline Phosphatase 80 Total Protein 6.6 L Albumin 3.5 Globulin 3.1 Albumin/Globulin Ratio 1.1 Lipase 27 PD MEDICAL DECISION MAKING - ED course Complexity details: considered differential (The dehiscence and now some wound drainage and odor are suggestive of wound infection. We will presume staff for possible gram-negative based on the odor. She does not appear septic. I did talk with Dr. Pate who is on-call and he came to the ER to evaluate the patient. His intention is to have her in the hospital for some IV antibiotics and wound care. IV fluids and antibiotics are started here.), d/w patient Departure - Departure Disposition: ED Place in Observation Clinical Impression: Wound infection after surgery Condition: Stable Record reviewed to determine appropriate education?: Yes Discharge Date/Time: 06/01/19 21:08
[2019-06-01] MEDS ORDERED: SODIUM CHLORIDE 0.9% 1,000 ML IV ONE (17:01)
[2019-06-01] MEDS ORDERED: CLINDAMYCIN 900 MG/50 ML 50 ML IV ONE (17:01)
[2019-06-01] MEDS ORDERED: cefTRIAXone 1 GM VIAL IVP STA (17:01)
[2019-06-01] MEDS ORDERED: KETOROLAC 15 MG/ML VIAL IVP STA (17:03)
[2019-06-01] MEDS ORDERED: VANCOMYCIN INJ 1.5 GM in SODIUM CHLORIDE 0.9% 500 ML IV STA (17:05)
[2019-06-01 17:59] LABS: BASOPHILS # (AUTO) 0.1 10^3/uL (0.0-0.1); BASOPHILS % (AUTO) 0.6 %; EOSINOPHILS # (AUTO) 0.1 10^3/uL (0.0-0.7); EOSINOPHILS % (AUTO) 0.7 %; HGB - HEMOGLOBIN 12.7 g/dL (12.0-16.0); LYMPHOCYTES # (AUTO) 3.1 10^3/uL (1.5-3.5); LYMPHOCYTES % (AUTO) 31.6 %; MEAN CORPUSCULAR HEMOGLOBIN 29.5 pg (27.0-31.0); MEAN CORPUSCULAR HGB CONC 32.8 g/dL (32.0-36.0); MEAN PLATELET VOLUME 9.9 fL (7.9-10.8); MONOCYTES # (AUTO) 0.6 10^3/uL (0.0-1.0); MONOCYTES % (AUTO) 6.1 %; NEUTROPHILS # (AUTO) 5.9 10^3/uL (1.5-6.6); NEUTROPHILS % (AUTO) 60.5 %; PLT - PLATELET COUNT 267 10^3/uL (130-450); RED CELL DISTRIBUTION WIDTH 13.9 % (12.0-15.0); WHITE BLOOD COUNT 9.8 x10^3/uL (4.8-10.8)
[2019-06-01 18:13] LABS: ALBUMIN 3.5 g/dL (3.2-5.5); ALBUMIN/GLOBULIN RATIO 1.1 (1.0-2.2); BILIRUBIN,TOTAL 0.6 mg/dL (0.2-1.0); CALCIUM 9.2 mg/dL (8.5-10.3); CREATININE 0.5 mg/dL (0.4-1.0); TOTAL PROTEIN 6.6 g/dL (6.7-8.2)
[2019-06-01] MEDS ORDERED: LIDOCAINE 2%-EPI 1:100000 20 ML MDV SUBQ STA (19:58)
[2019-06-01] MEDS ORDERED: SODIUM CHLORIDE FLUSH 0.9% 10 ML SYRINGE IVP PRN (20:06)
[2019-06-01] MEDS ORDERED: VANCOMYCIN INJ 1.5 GM in SODIUM CHLORIDE 0.9% 500 ML IV SCH (21:00)
--- NOTE | 2019-06-01 21:57 | HISTORY & PHYSICAL EXAMINATION ---
DATE OF SERVICE: 06/01/2019 Physician: Ruben Pate MD IDENTIFICATION: A 39-year-old G3, P2, AB1 female who delivered on 05/21/2019 via repeat sec tion. CHIEF COMPLAINT: Bad odor from her wound. HISTORY OF PRESENT ILLNESS: The patient had a repeat low transverse section on 05/21/2019 w ithout incident. She states she did well postoperatively, went home second day postop, did not have any difficulty; however, she was noted to have an opening of the wound on 05/26/[address] was [address] Dr[address] Noble on 05/29/2019, at which time, a wound VAC was placed. She states she did well; however, yesterday she started to note a foul odor and this has become progressively worse with time. She st ates it has become quite bad in nature. She denies temperature, chills, fevers. She denies any lang[place] ge in her appetite, bowel function or other problems. She had a history of gestational diabetes; how ever, her blood sugar in the ED is normal. PAST MEDICAL HISTORY: Denies any hypertensive, diabetic, cardiac or pulmonary disease. PAST SURGICAL HISTORY: Positive for section x2, tonsillectomy and adenoidectomy, as well as wisdom teeth. ALLERGIES: CODEINE, WHICH CAUSES ASTHMA. CURRENT MEDICATIONS: vitamins as well as 600 mg of Motrin. HABITS: The patient denies the use of alcohol, tobacco, street or addictive drugs. 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 PHYSICAL EXAMINATION: VITAL SIGNS: Pulse is 76, blood pressure 124/72, temperature is 36.9 and saturating 99%. HEENT: Pupils are equal and round. Extraocular muscles are intact. CARDIOVASCULAR: Regular rate and rhythm without murmurs. LUNGS: Lung perera are clear without rales or wheezes. ABDOMEN: Very corpulent in nature. There is a wound VAC, which is currently in place. There is a v radha foul smelling, sweetish odor emanating from her wound at this time. Upon removing the wound VAC, which was saturated with blood, there was an area on the left side of the incision, which was 2.5-3 cm in length, which was opening. There was minimal discharge noted at this particular time. Culture was taken at this point. She shows no CVA tenderness. LABORATORY DATA: Labs showed a white count of 9.8, hemoglobin was 12.7, hematocrit was 38.6. Her pl atelets are 270/67. Electrolytes are within normal limits. Her blood sugar is 86. IMPRESSION: A 37 weeks, G3, P2 female, 11 days status post section with a wound infection. The concern about possible anaerobes has been entertained. In discussing with the General Surgeon, it was decided to go ahead and open and pack at this time. She received vancomycin 1 gram and Rocephi n 2.5 grams. PLAN: We will admit to Observation, at which time we will be changing the packing twice daily and we will also contact Wound Care for further guidance and possible home discharge for wound care. TD: 06/01/2019 21:11
[2019-06-01] MEDS: ACETAMINOPHEN 325 MG TABLET PO SCH (22:07)
--- NOTE | 2019-06-02 01:27 | PROCEDURE REPORT ---
DATE OF SERVICE: 06/01/2019 Physician: Ruben Pate MD PREOPERATIVE DIAGNOSIS: section wound abscess. POSTOPERATIVE DIAGNOSES: section wound abscess. PROCEDURE PERFORMED: Open drainage of section wound. SURGEON: Ruben Pate MD ANESTHESIA: Local with 2% lidocaine with epinephrine. FINDINGS: Upon entering the room, there was a very strong sweet smelling odor from her wound. There was no evidence of any spreading at the skin surface at this time. PROCEDURE: Following prepping the wound with Betadine, a 22-gauge needle was used to inject 20 mL of 2% lidocaine with epinephrine superior to the wound. Once this was obtained, the wound was opened u tilizing scissors down through the subcutaneous tissue to the second layer closure. There was a mode rate amount of pain accompanying this; however, patient tolerated. Upon opening the wound, the area was irrigated and then packed with Betadine-soaked gauze. A dressing was then placed and taped in pl [place]. The patient tolerated the procedure well. Cultures prior to Betadine were those of anaerobes a nd aerobes. TD: 06/01/2019 21:12
[2019-06-02] MEDS: ACETAMINOPHEN 325 MG TABLET PO SCH ×4 (02:26→21:25)
[2019-06-02] MEDS: SODIUM CHLORIDE FLUSH 0.9% 10 ML SYRINGE IVP SCH ×4 (06:01→23:36)
--- NOTE | 2019-06-02 07:54 | PROVIDER PROGRESS NOTE ---
Subjective - General Admit Date: 06/01/19 Procedure Date: 05/21/19 Post Op Days: 12 Procedure Performed: opening wound - Review of Systems Wound/Incisions: positive: Erythema improving Drain Type: Packed with wet to dry General: positive: No symptoms (Pt is depressed secondary to hospitilization) Pulmonary: positive: No symptoms Cardiovascular: positive: No symptoms Gastrointestinal: positive: No symptoms Objective - Patient Data Vital Signs: Vital Signs x48h Temp Pulse Resp BP Pulse Ox 06/02/19 00:23 36.8 C 81 20 130/70 100 Weight: Weight 05/31/19 06/01/19 06/02/19 23:59 23:59 23:59 Weight (kg) 121 kg Intake & Output: Intake and Output Totals x24h 05/31/19 06/01/19 06/02/19 23:59 23:59 23:59 Intake Total 1500 200 Balance 1500 200 - Lab Results Lab Results: 06/01/19 17:40 06/01/19 17:40 Other Lab Results: Lab Results x24hrs 06/01/19 06/01/19 Range/Units 17:40 17:40 WBC 9.8 (4.8-10.8) x10^3/uL RBC 4.30 (4.20-5.40) 10^6/uL Hgb 12.7 (12.0-16.0) g/dL Hct 38.7 (37.0-47.0) % MCV 90.0 (81.0-99.0) fL MCH 29.5 (27.0-31.0) pg MCHC 32.8 (32.0-36.0) g/dL RDW 13.9 (12.0-15.0) % Plt Count 267 (130-450) 10^3/uL MPV 9.9 (7.9-10.8) fL Neut # (Auto) 5.9 (1.5-6.6) 10^3/uL Lymph # (Auto) 3.1 (1.5-3.5) 10^3/uL [place] # (Auto) 0.6 (0.0-1.0) 10^3/uL Eos # (Auto) 0.1 (0.0-0.7) 10^3/uL Baso # (Auto) 0.1 (0.0-0.1) 10^3/uL Absolute Nucleated RBC 0.00 x10^3/uL Nucleated RBC % 0.0 /100WBC Sodium 140 (135-145) mmol/L Potassium 3.9 (3.5-5.0) mmol/L Chloride 106 (101-111) mmol/L Carbon Dioxide 24 (21-32) mmol/L Anion Gap 10.0 (6-13) BUN 16 (6-20) mg/dL Creatinine 0.5 (0.4-1.0) mg/dL Estimated GFR (MDRD) 139 (>89) Glucose 86 (70-100) mg/dL Calcium 9.2 (8.5-10.3) mg/dL Total Bilirubin 0.6 (0.2-1.0) mg/dL AST 21 (10-42) IU/L ALT 25 (10-60) IU/L Alkaline Phosphatase 80 (42-121) IU/L Total Protein 6.6 L (6.7-8.2) g/dL Albumin 3.5 (3.2-5.5) g/dL Globulin 3.1 (2.1-4.2) g/dL Albumin/Globulin Ratio 1.1 (1.0-2.2) Lipase 27 (22-51) U/L - Current Medications Current Medications: Current Medications Generic Name Dose Route Start Last Admin Trade Name Freq PRN Reason Stop Dose Admin Acetaminophen 650 mg 06/01/19 21:00 06/02/19 02:26 Tylenol PO 650 mg Q6H FAIZA Administration Sodium Chloride 10 ml 06/02/19 01:00 06/02/19 06:01 Normal Saline Flush 0.9% IVP Not Given 0100,0900,1700 [facility] ABX Reporting Has patient been on IV antibiotics over the past 48 hours?: Yes Impression/Plan - Problem List Problem List: OPD # 12 S/P RLTC/S wound infection. cultures pending. Smell resolved Rocephin/Vanco Plan wet to dry wound consult
[2019-06-02] MEDS ORDERED: VANCOMYCIN INJ 1.5 GM in SODIUM CHLORIDE 0.9% 500 ML IV SCH (08:00)
[2019-06-02] MEDS: cefTRIAXone 1 GM in SODIUM CHLORIDE 0.9% MINIBAG 100 ML IV SCH (11:12)
--- NOTE | 2019-06-02 11:20 | CONSULTATION NOTE ---
Consultation Report: Call for assist in IV start after multiple failed attempts. US used to place 20ga @LAC after attempt x2 (1 @R). Easily aspirates and flushes. Secured. Pt tolerated procedure without complication/complaint.
[2019-06-02] MEDS: PRENATAL VITAMIN TABLET PO SCH (15:02)
--- NOTE | 2019-06-02 15:49 | PHARMACY PROGRESS NOTE ---
- Best Possible Medication History Admit Date and Time: 06/01/192005 Processed by: Pharmacy Medication History completed: Yes Patient Interview: Completed Secondary Source(s): Insurance records As the person ultimately responsible for medication therapy, providers are able to order a medication from an existing home medication list in [facility] via the "Reconcile Routine" prior to Confirmation of that medication by operator command support systems. Such practice is discouraged except when the physician, in their clinical judgment, deems that a medical need exists for a medication without regard to previous use.
[2019-06-02 17:40] LABS: CREATININE 0.6 mg/dL (0.4-1.0)
--- NOTE | 2019-06-02 18:11 | PHARMACY PROGRESS NOTE ---
- Therapy Status Vancomycin regimen day #: 2 Therapy status: Awaiting steady state Basis for treatment: Empirical Treatment indication: wound infection Trough goal: 15-20 Concurrent antibiotics: ceftriaxone - JULIANA Risk Acute Kidney Injury risk factors: Wt >100kg or BMI >40, Goal trough >15, Total daily Vancomycin >4 grams - Monitoring and Recommendation Clinical response to treatment: I&O Previous 24 hours 05/31/19 06/01/19 06/02/19 23:59 23:59 23:59 Intake Total 1500 200 Balance 1500 200 Lab Results 06/01/19 17:40 BUN 16 Creatinine 0.5 Estimated GFR (MDRD) 139 Cultures 06/01/19 19:30 Abdomen Wound Culture - Preliminary 06/01/19 17:00 Abdomen Wound Culture - Preliminary Monitoring plan: Daily serum creatinine Next trough due prior to maintenance dose #: 4 Next trough due (date/time): 06/03 at 0330 Areas for additional monitoring: IV to PO when appropriate, Therapy de- escalation based on culture results, Acute Kidney Injury Pharmacy recommendation: Continue current regime (1.5 g IV q8 h (frequency changed from q12h to q8h 2/2 to renal per protocol))
[2019-06-02] MEDS: VANCOMYCIN INJ 1.5 GM in SODIUM CHLORIDE 0.9% 500 ML IV SCH (19:47)
[2019-06-03] MEDS: ACETAMINOPHEN 325 MG TABLET PO SCH ×2 (03:33→09:20)
[2019-06-03 03:46] LABS: VANCOMYCIN,TROUGH 14.3 ug/mL (10.0-20.0)
[2019-06-03] MEDS ORDERED: diphenhydrAMINE 25 MG CAPSULE PO PRN (04:05)
--- NOTE | 2019-06-03 09:02 | PROVIDER PROGRESS NOTE ---
Subjective - Prog Note Date Prog Note Date: 06/03/19 Prog Note Time: 06:00 - Subjective Subjective: Received call over night that patient was having red discoloration while having vancomycin No SOB or wheezing, no facial swelling Vancomycin held Benadryl given FU in am Objective - Vital Signs/Intake & Output Vital Signs: Vital Signs x48h Temp Pulse Resp BP Pulse Ox 06/03/19 07:45 97.9 F 75 16 129/77 100 06/03/19 05:06 97.9 F 06/03/19 03:36 81 20 137/74 H 100 Intake & Output: Intake & Output 05/31/19 06/01/19 06/02/19 06/03/19 23:59 23:59 23:59 23:59 Intake Total 1500 2120 Balance 1500 2120 - Lab Results Fish Bones: 06/01/19 17:40 06/02/19 17:07 Other Labs: Lab Results x24hrs 06/03/19 06/02/19 Range/Units 03:34 17:07 Creatinine 0.6 (0.4-1.0) mg/dL Estimated GFR (MDRD) 112 (>89) Last Dose Date 06/02/19 Last Dose Time 1999 Vancomycin Trough 14.3 (10.0-20.0) ug/mL
[2019-06-03] MEDS: PRENATAL VITAMIN TABLET PO SCH (09:20)
[2019-06-03] MEDS: cefTRIAXone 1 GM in SODIUM CHLORIDE 0.9% MINIBAG 100 ML IV SCH (09:20)
[2019-06-03] MEDS: SODIUM CHLORIDE FLUSH 0.9% 10 ML SYRINGE IVP SCH (09:21)
[2019-06-03] MEDS: VANCOMYCIN INJ 1.5 GM in SODIUM CHLORIDE 0.9% 500 ML IV SCH ×2 (11:38→12:37)
--- NOTE | 2019-06-03 12:58 | PROVIDER PROGRESS NOTE ---
Subjective - Prog Note Date Prog Note Date: 06/03/19 Prog Note Time: 12:56 - Subjective Pt reports feeling: Improved (Pain minimal. reviewed with wound care) Objective - Vital Signs/Intake & Output Reviewed Vital Signs: Yes Vital Signs: Vital Signs x48h Temp Pulse Resp BP Pulse Ox 06/03/19 07:45 36.6 C 75 16 129/77 100 06/03/19 05:06 36.6 C Intake & Output: Intake & Output 05/31/19 06/01/19 06/02/19 06/03/19 23:59 23:59 23:59 23:59 Intake Total 1500 2120 820 Balance 1500 2120 820 - Objective General Appearance: positive: No acute distress, Alert Respiratory: positive: Chest non-tender, No respiratory distress, Breath sounds nml Cardiovascular: positive: Regular rate & rhythm, No murmur, No gallop Abdomen: positive: Non-tender, Nml bowel sounds, Other (wound: dressing inpla ce.) Neurologic/Psychiatric: positive: Oriented x3 - Lab Results Fish Bones: 06/01/19 17:40 06/02/19 17:07 Other Labs: Lab Results x24hrs 06/03/19 06/02/19 Range/Units 03:34 17:07 Creatinine 0.6 (0.4-1.0) mg/dL Estimated GFR (MDRD) 112 (>89) Last Dose Date 06/02/19 Last Dose Time 1999 Vancomycin Trough 14.3 (10.0-20.0) ug/mL ABX Reporting Has patient been on IV antibiotics over the past 48 hours?: Yes Assessment/Plan - Problem List (1) Wound infection after surgery Impression: antibiotic sensitivity reviewed Change to Bactrum bid 7 days RTC one week. wound care as out patient.
[2019-06-03 13:27] VITALS: BP 141/77
[2019-06-03] MEDS ORDERED: SACCHAROMYCES BOULARDII 250 MG CAPSULE PO SCH (17:00)
--- NOTE | 2019-06-20 12:32 | Discharge Plan ---
Discharge Plan Problem Reviewed?: Yes Disposition: Home, Self Care Condition: Good Diet: Regular Activity Restrictions: keep wound dry Shower Restrictions: No Driving Restrictions: No Weight Bearing: Full Weight No Smoking: If you smoke, Please STOP! Call for help. Follow-up with: JESSICA KAM MD [Primary Care Provider] -
== END 2019-06-03 14:55 | disposition home or self-care (01) ==
LOC: ED 15:48 → MS2 20:06 → INTOOBSV 20:06
PROVIDERS: ADMIT Obstetrics & Gynecology; ATTEND Obstetrics & Gynecology
DX: O86.01 Infection of obstetric surgical wound, superficial incisional site (principal); B96.89 Other specified bacterial agents as the cause of diseases classified elsewhere; R23.8 Other skin changes
CPT/HCPCS: 10180; 36415; 80053; 80202; 82565; 83690; 85025; 87070; 87075; 87077; 87181; 87205; 96365; 96366; 96375; 97597; 99284; 99285; A9270; J3370

== ENCOUNTER 2021-05-21 12:37 | Emergency (ER) | payer OTHER ==
[2021-05-21 12:48] VITALS: BP 138/81
--- NOTE | 2021-05-21 13:45 | ED Physician Documentation ---
PD HPI PED ILLNESS - Stated complaint Stated Complaint: COUGH/CONGESTION - Chief complaint Chief Complaint: Resp - History obtained from History obtained from: Patient - Additional information Additional information: She has been sick for about 4 days with nasal congestion which was severe but is now improving, cough productive of minimal yellow sputum and sore throat which is also improving. No associated fevers or body aches. She did lose the sense of taste yesterday. She is vaccinated against COVID. Both of her ears are having a lot of pressure but no pain per se. Her daughter had a sore throat earlier this week which has since resolved. Review of Systems Constitutional: reports: Fatigue ("But I have 2 kids"), Sweats. denies: Fever, Chills, Myalgias Ears: denies: Loss of hearing, Drainage/discharge Nose: reports: Rhinorrhea / runny nose, Congestion Throat: reports: Sore throat Cardiac: denies: Chest pain / pressure, Palpitations Respiratory: reports: Cough. 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 HEENT: Tonsil/Adenoidectomy - Present Medications Home Medications: Ambulatory Orders Medication Instructions Recorded Confirmed Ibuprofen [Motrin] 600 mg PO DAILY PRN 06/02/19 06/06/19 Pnv No.95/Ferrous Fum/Folic AC 1 tab PO DAILY 06/02/19 06/06/19 [ Vitamins Tablet] - Allergies Allergies/Adverse Reactions: Allergies Allergy/AdvReac Type Severity Reaction Status Date / Time codeine Allergy Hives Verified 05/21/21 12:48 - Social History Does the pt smoke?: No Smoking Status: Former smoker Does the pt drink ETOH?: Yes Does the pt have substance abuse?: No - Immunizations Immunizations are current?: Yes - POLST Patient has POLST: No PD ED PE NORMAL - Vitals Vital signs reviewed: Yes - General General: Alert and oriented X 3, No acute distress - HEENT HEENT: Pharynx benign (Tonsils are surgically absent), Other (She has bilateral serous otitis without signs of infection) - Neck Neck: Supple, no meningeal sign, No bony TTP - Cardiac Cardiac: RRR, No murmur - Respiratory Respiratory: No respiratory distress, Clear bilaterally - Abdomen Abdomen: Non tender - Derm Derm: Normal color, Warm and dry, No rash - Neuro Neuro: Alert and oriented X 3, Normal speech Results - Vitals Vitals: Vital Signs - 24 hr 05/21/21 12:43 Temperature 36.1 C L Heart Rate 89 Respiratory 16 Rate Blood Pressure 138/81 H O2 Saturation 99 Oxygen O2 Source Room air Departure - Departure Disposition: 01 Home, Self Care Clinical Impression: Viral URI, Acute serous otitis media of both ears Condition: Good Record reviewed to determine appropriate education?: Yes Instructions: ED Otitis Media Serous Adult, ED Viral Syndrome Comments: As discussed, it sounds like you have a viral upper respiratory infection complicated by serous otitis media AKA "snot behind the eardrums" I would recommend taking an [id number] decongestant such as Mucinex D per package instructions and drinking plenty of fluids. You have a Covid test pending. You need to self quarantine until the result is done and negative. Do not leave your house. Do not get near anybody. The results should be done in 48 to 72 hours. We will call with a positive result, the fastest way to get a negative result for confirmation though is to go to the hospital website at [email or web address], click on the my [facility] tab and sign up for the patient portal. If any friends or family get sick and would like to have a Covid test done, but do not have signs or symptoms that would necessitate being hospitalized, there are multiple local options for Covid testing. [facility] keeps an updated list of testing and vaccination options at: [email or web address].
== END 2021-05-21 14:01 | disposition home or self-care (01) ==
LOC: ED 12:37
DX: U07.1 COVID-19 (principal); H65.03 Acute serous otitis media, bilateral; Z87.891 Personal history of nicotine dependence
CPT/HCPCS: 99282; 99283